=== PATIENT | male | born 1995 | race Caucasian/White ===

== ENCOUNTER 2018-10-14 01:33 | Emergency (ER) | payer OTHER ==
[2018-10-14] MEDS ORDERED: TETRACAINE 0.5% OPHTH SOLN 2 ML BOTTLE ONE (02:19)
[2018-10-14] MEDS ORDERED: FLUORESCEIN NA 1 EA STRIP ONE (02:20)
--- NOTE | 2018-10-14 02:57 | PDOC ---
History of Present Illness - General Chief Complaint: Eye Problem Stated Complaint: EYE PROBLEM Time Seen by Provider: 10/14/18 02:01 History Source: Patient Exam Limitations: No Limitations Past History - Past Medical History Allergies/Adverse Reactions: Allergies Allergy/AdvReac Type Severity Reaction Status Date / Time No Known Allergies Allergy Verified 10/14/18 02:21 Home Medications: Ambulatory Orders Erythromycin 0.5% Eye Ointment [Erythromycin 0.5% Eye Ointment -] 1 applic OS QID #1 tube 10/14/18 *Physical Exam - Physical Exam General Appearance: No: Apparent Distress HEENT: positive: EOMI, MARIYA, Other (+L eye injected, +FB noted L eye cornea, no corneal abrasion, vision is 20/20 L eye, 20/20 R eye, 20/20 both eyes) Integumentary: positive: Normal Color Neurologic: positive: Alert, Normal Mood/Affect Medical Decision Making - Medical Decision Making 23 y/o M with no sig pmh presents with FB sensation in L eye from yesterday. 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 Also with c/o eye pain, photophobia and tearing. Denies wearing contacts or glasses. Denies prior eye surgeries. L eye FB was removed with cotton swab with remaining rust ring Vision 20/20 each eye Will refer to ophtho 10/14/18 02:53 *DC/Admit/Observation/Transfer Diagnosis at time of Disposition: Foreign body of left eye Qualifiers: Encounter type: initial encounter Qualified Code(s): T15.92XA - Foreign body on external eye, part unspecified, left eye, initial encounter - Discharge Dispostion Disposition: HOME Condition at time of disposition: Stable Decision to Admit order: No - Prescriptions Prescriptions: Erythromycin 0.5% Eye Ointment [Erythromycin 0.5% Eye Ointment -] 1 applic OS QID #1 tube - Referrals Referrals: Kiko Capps [Primary Care Provider] - 2 Days Chapincito Sanders MD [Non Staff, Medical] - Call tomorrow - Patient Instructions Printed Discharge Instructions: DI for Foreign Body in the Eye Additional Instructions: Thank you for choosing [facility]. It was a pleasure taking care of you. There was foreign body in your eye which was removed There is rust ring remaining in eye. Apply ointment four times a day for 3-5 days Call ski [facility]pper tomorrow for follow up Return to the Emergency Department if your symptoms worsen or persist or have other concerning symptoms. - Post Discharge Activity
[2018-10-14 03:08] VITALS: BP 138/74; PULSE 79; TEMP 97.6; BMI 30.7
== END 2018-10-14 03:10 | disposition home or self-care (01) ==
LOC: JER 01:33
PROC: 08C9XZZ Extirpation of Matter from Left Cornea, External Approach (ICD-10-PCS; principal; 2018-10-14)
DX: T15.02XA Foreign body in cornea, left eye, initial encounter (principal); X58.XXXA Exposure to other specified factors, initial encounter; Y93.89 Activity, other specified; Y92.69 Other specified industrial and construction area as the place of occurrence of the external cause; Y99.0 Civilian activity done for income or pay
CPT/HCPCS: 99281-25